=== PATIENT | male | born 1990 | race Caucasian/White ===

== ENCOUNTER 2018-12-30 16:05 | Emergency (ER) | payer SELFPAY ==
[2018-12-30 16:05] VITALS: BP 157/83; PULSE 69; RESP 19; TEMP 37.2; O2SAT 99; BMI 30.4
--- NOTE | 2018-12-30 16:19 | ED.DCSUM_ITS ---
- ER Visit Summary Date of Service: 12/30/18 Chief Complaint: Abdominal pain History of Present Illness: The patient is a 28 M who woke at 3 AM this morning with epigastric abdominal pain, nausea, and vomiting. He reports chills but no measured fever. He denies having diarrhea. He states he last ate around 9 PM last evening. He ate pizza at that time. He felt okay when he went to bed last night. Past history significant for appendectomy. Physical Examination: Blood pressure is 157/83, otherwise vitals normal. Patient lying in bed in no acute distress. He does appear uncomfortable. Heart is regular rate and rhythm. Lung sounds are clear. Abdomen is soft with epigastric tenderness. No guarding or rebound. Hypoactive bowel sounds are present. Test Results: CBC and chemistry studies grossly unremarkable. LFTs and lipase normal. Emergency Department Course and Treatment: Patient was given morphine, Zofran, and IV fluids. This is followed by a dose of Protonix. Patient was given some dangelo riana and states his pain worsened after that. He was given a dose of Toradol and Phenergan. On final repeat exam he is sleeping comfortably. He easily awakens. He states his stomach does feel better but he does not want to eat at this time. He will be given a prescription for Phenergan and Prilosec at home. Treatment Plan: [] Disposition: Discharge Impression: Gastritis This note was generated with [email or web address] dictation software. It may contain incorrect words, spelling, and punctuation that were not noted in review of the chart prior to signing ED Disposition - Plan for ED Patient: Disposition: Home or Assisted Living Instructions: ED PUD Vs Gastritis Prescriptions: proMETHazine tablet [Phenergan] 25 mg PO Q6H PRN PRN #10 tablet PRN Reason: Nausea Omeprazole [Prilosec] 20 mg PO DAILY #30 capsule Referrals: Star Coon DO [STAFF PHYSICIAN] - 1-2 Weeks
[2018-12-30] MEDS: Ondansetron 4 MG/2 ML Vial IV (16:38)
[2018-12-30] MEDS: Morphine 4 MG/ML Syringe IV (16:38)
[2018-12-30] MEDS: 0.9% Normal Saline 1,000 ML 1000 ML IV (16:39)
[2018-12-30 16:53] LABS: Absolute Lymphocyte Count 1.08 X10^3/ul (0.83-4.51); Absolute Neutrophil Count 8.8 X10^3/uL (2.0-7.7); Basophil# 0.02 X10^3/uL; Basophil% 0.2 % (0-1); Eosinophil# 0.05 X10^3/uL; Eosinophils% 0.5 % (0-5); Hematocrit 44.1 % (40-54); Hemoglobin 15.3 g/dl (13.0-16.5); Lymphocyte # 1.08 X10^3/ul (4.0); Lymphocyte % 10.4 % (19-41); Mean Corp Hgb Conc 34.7 g/gl (32-36); Mean Corpuscular Hgb 30.2 pg (27.0-32.0); Mean Corpuscular Volume 87.2 fL (80-94); Mean Platelet Vol. 9.4 fl (6.2-12.0); Monocyte# 0.43 X10^3/uL; Monocyte% 4.1 % (0-10); Neutrophil # 8.81 X10^3/uL (2.7-7.7); Neutrophil % 84.6 % (47-70); Platelet Count 224 K/mm3 (150-450); RBC Distribution Width CV 12.6 % (11.6-14.6); RBC Distribution Width SD 39.3 fl (35.1-43.9); Red Blood Count 5.06 M/mm3 (4.6-6.2); White Blood Count 10.4 K/mm3 (4.4-11.0)
[2018-12-30 17:06] LABS: POSITIVE COUNT NO; POSITIVE DIFFERENTIAL NO; POSITIVE MORPHOLOGY NO
[2018-12-30 17:12] LABS: AST(SGOT) 16 U/L (15-37); Alanine Aminotransfer ALT/SGPT 31 U/L (16-61); Albumin, Serum 4.4 g/dL (3.2-5.0); Alkaline Phosphatase 75 U/L (45-117); Anion Gap 4 (5-15); BUN 12 mg/dL (7-18); BUN/Creat Ratio 13.4 RATIO (10-20); Bilirubin, Direct 0.15 mg/dL (0.00-0.30); Chloride 109 mmol/L (98-107); Creatinine, Serum 0.89 mg/dL (0.70-1.30); EST Glomerular Filtration Rate 107 mL/min (>60); Est Glom Filt Rate - Afr Amer 129 mL/min (>60); Estimated Creatinine Clearance 118.48 ml/min; Globulin 3.4 g/dL (2.2-4.2); Glucose 129 mg/dL (74-106); Lipase 96 U/L (73-393); Potassium 4.3 mmol/L (3.5-5.1); Protein, Total 7.8 g/dL (6.4-8.2); Sodium Level 140 mmol/L (136-145)
[2018-12-30] MEDS: 0.9% Normal Saline 1,000 ML 150 ML IV (17:44)
[2018-12-30] MEDS: proMETHazine 25 MG/ML Syringe 12.5 MG IV (17:52)
[2018-12-30] MEDS: Ketorolac 30 MG/ML Syringe IV (17:52)
[2018-12-30 18:13] VITALS: BP 133/80; PULSE 70; RESP 16; O2SAT 98
[2018-12-30 19:21] VITALS: BP 126/69; PULSE 60; RESP 17; O2SAT 98
== END 2018-12-30 19:22 | disposition home or self-care (01) ==
PROVIDERS: Emergency Provider Emergency Medicine
DX: K29.70 Gastritis, unspecified, without bleeding (principal); Z72.0 Tobacco use
CPT/HCPCS: 80048; 80076; 83690; 85025; 96361; 96365; 96375; 99283; J7030; A4216; J2405

== ENCOUNTER 2021-07-24 20:39 | Emergency (ER) | payer SELFPAY ==
[2021-07-24 20:40] VITALS: BP 147/92; PULSE 96; RESP 15; TEMP 36.3; O2SAT 98; BMI 30.4
[2021-07-24 20:42] VITALS: BP 147/92; PULSE 96; RESP 15; TEMP 36.3; O2SAT 98
[2021-07-24 21:08] LABS: Absolute Lymphocyte Count 1.94 X10^3/uL (0.83-4.51); Absolute Neutrophil Count 3.7 X10^3/uL (2.0-7.7); Basophil# 0.07 X10^3/uL; Basophil% 1.1 % (0-1); Eosinophil# 0.38 X10^3/uL; Eosinophils% 5.7 % (0-5); Hematocrit 36.9 % (40-54); Hemoglobin 12.9 g/dL (13.0-16.5); Lymphocyte # 1.94 X10^3/ul (0.83-4.51); Lymphocyte % 29.3 % (19-41); Mean Corpuscular Hgb 31.2 pg (27.0-32.0); Mean Corpuscular Volume 89.1 fL (80-94); Mean Platelet Vol. 8.7 fl (6.2-12.0); Monocyte# 0.48 X10^3/uL; Monocyte% 7.2 % (0-10); NRBC Flagged by Analyzer 0 % (0-5); Neutrophil # 3.74 X10^3/uL (2.7-7.7); Neutrophil % 56.4 % (47-70); Platelet Count 237 K/mm3 (150-450); RBC Distribution Width CV 12.2 % (11.6-14.6); RBC Distribution Width SD 39.8 fl (35.1-43.9); Red Blood Count 4.14 M/mm3 (4.6-6.2); White Blood Count 6.6 K/mm3 (4.4-11.0)
[2021-07-24 21:24] LABS: ALB/GLOB Ratio 1.1 RATIO (0.9-2.4); AST(SGOT) 13 U/L (15-37); Alanine Aminotransfer ALT/SGPT 22 U/L (16-61); Albumin, Serum 3.9 g/dL (3.2-5.0); Alkaline Phosphatase 61 U/L (45-117); Anion Gap 6 (5-15); BUN 6 mg/dL (7-18); BUN/Creat Ratio 6.6 RATIO (10-20); Calcium,Total 8.9 mg/dL (8.5-10.1); Chloride 109 mmol/L (98-107); Creatinine, Serum 0.91 mg/dL (0.70-1.30); EST Glomerular Filtration Rate 103 mL/min (>60); Est Glom Filt Rate - Afr Amer 125 mL/min (>60); Estimated Creatinine Clearance 116.54 ml/min; Globulin 3.4 g/dL (2.2-4.2); Glucose 154 mg/dL (74-106); Potassium 3.7 mmol/L (3.5-5.1); Protein, Total 7.3 g/dL (6.4-8.2); Sodium Level 141 mmol/L (136-145)
--- NOTE | 2021-07-24 23:18 | EDS_ITS ---
HPI HPI - GI History of Present Illness Chief Complaint: Abd Pain Informant: patient Abdominal Pain/Flank Pain Onset: Weeks Context: Gradual Onset Timing: Continuous Location: Epigastric Current Severity: Mild Maximum Severity: Mild Nausea/Vomiting/Emesis GI Symptom: Positive for Nausea and Vomiting Onset: Days Severity: Mild Diarrhea/Melena/Hematochezia GI Symptom: Negative for Diarrhea, Melena and Hematochezia Associated Symptoms Associated Symptoms: Negative for Dysuria, Frequency, Hematuria and Urgency Narrative Narrative: No prior appendectomy. History of peptic ulcer disease but does not know if he is ever had upper endoscopy. Says he has had flulike symptoms for 2 weeks. Has had epigastric pain for 2 months. Is becoming more constant. He denies any hematemesis or melena. States he has had some mild nausea and vomiting. He has had 12 pound weight loss in the last 1 to 2 weeks. Denies any fever. Prior similar symptoms: Yes Recent Illness/Hospitalization: No PFSH PFSH Medical History no medical history Home Medications ondansetron HCl [Zofran] 4 mg PO Q8H PRN #7 tab 07/24/21 [Rx Last Taken Unknown] pantoprazole [Protonix] 40 mg PO DAILY #30 tab 07/24/21 [Rx Last Taken Unknown] Allergy/AdvReac Type Severity Reaction Status Date / Time No Known Allergies Allergy Verified 07/24/21 20:42 Social History Smoking Status: Light Smoker (<10/day) ROS ROS ED ROS Narrative Nausea and vomiting. Epigastric abdominal pain. Review of Systems ROS Unobtainable: Denies due to encephalopathy Constitutional Constitutional ED: Denies chills or fever(s) ENT ENT ED: Denies ear pain Cardiovascular Cardiovascular: Denies chest pain Respiratory/Chest Respiratory/Chest: Denies dyspnea Gastrointestinal Gastrointestinal: Reports abdominal pain, nausea and vomiting; Denies diarrhea Genitourinary Genitourinary ED: Denies dysuria Musculoskeletal Musculoskeletal: Denies myalgias Integumentary Denies rash Neurologic Neurologic: Denies headache(s) Psychiatric Psychiatric: Denies depression Endocrine Endocrinology: Denies polyuria Hematologic/Lymphatic Hematologic/Lymphatic: Denies easy bruising Allergic/Immunologic Allergic/Immunologic ED: Denies urticaria EXAM Physical Exam Narrative Exam Narrative: 31-year-old male no acute distress vital signs stable afebrile. H EENT exam unremarkable. Neck nontender. Lungs clear to auscultation bilaterally heart regular rhythm. Abdomen soft nondistended normal bowel sounds no peritoneal signs. Mild epigastric tenderness. Right upper right lower quadrant unremarkable. Extremities moves all 4. Calves nontender no edema back nontender. Neurologic exam normal. Const Vital Signs: 07/24/21 20:40 07/24/21 20:42 Temperature 97.3 F L 97.3 F L Temperature Source Temporal Temporal Pulse Rate 96 96 Respiratory Rate 15 15 Blood Pressure 147/92 H 147/92 H Blood Pressure Mean 110 110 Pulse Ox 98 98 Oxygen Delivery Method Room Air Room Air Positive well nourished and well developed; Negative for obese, cachectic, contractures or unkempt General Appearance ED: well developed and NAD; Negative for unkempt, cachectic, contractures or pallor Nutritional Appearance: Negative for cachectic or obese HEENT normocephalic and atraumatic; Negative for trauma or tenderness Eyes PERRL and EOMs intact bilaterally General Eye ED: Yes pale conjunctiva Neck no lymphadenopathy, supple and no JVD General: Negative for tenderness Resp normal respiratory effort and clear to auscultation bilaterally Auscultation: Negative for rales, rhonchi or wheezes Cardio regular rate, regular rhythm, S1 normal heart sound, S2 normal heart sound and no murmurs GI non-distended and no masses; Negative for non-tender Inspection: Negative for abdominal distention Auscultation: normoactive bowel sounds Palpation: soft; Negative for tender, guarding, rigid or rebound tenderness present Back/Spine no CVA tenderness General Back: Negative for CVA tenderness Extremity full ROM General Extremety ED: Negative for edema or tenderness General Extremity: Negative for edema Neuro moves all extremities Sensorium / Orientation: alert, oriented to person, oriented to place and oriented to time; Negative for orientation impaired, confused, lethargic or stuporous Motor Exam: strength 5/5 throughout Psych mental status grossly normal and thought process normal Appearance: Negative for unkempt Mood & Affect: Negative for depressed Skin no wounds General Skin Exam: Negative for jaundice or pallor Lesions: no lesions Rashes: no rashes MDM MDM MDM Narrative Medical decision making narrative: 31-year-old male with epigastric abdominal pain for months. Gastritis versus ulcer. Treated with GI cocktail and Pepcid. Repeat exam patient feels a little bit better after GI cocktail and Pepcid. We discussed his test results and the drop of his hemoglobin from 15-12.9. He knows he needs to follow-up for further evaluation for possible gastritis or ulcer and he knows when to return if feeling worse or melena or hematemesis. He will be started on Protonix daily. Lab Data Attestation: I reviewed the patient's lab results. Lab results narrative: CBC shows a white count of 6. Hemoglobin 12.9. Electrolytes gap of 6 normal BUN and creatinine. Glucose 154. Covid test negative. Labs: Laboratory Results - last 24 hr 07/24/21 07/24/21 07/24/21 20:55 20:55 20:55 WBC 6.6 RBC 4.14 L Hgb 12.9 L Hct 36.9 L MCV 89.1 MCH 31.2 MCHC 35.0 RDW Std Deviation 39.8 RDW Coeff of Raul 12.2 Plt Count 237 MPV 8.7 Immature Gran % (Auto) 0.300 Neut % (Auto) 56.4 Lymph % (Auto) 29.3 [place] % (Auto) 7.2 Eos % (Auto) 5.7 H Baso % (Auto) 1.1 H Absolute Neuts (auto) 3.7 Absolute Lymphs (auto) 1.94 Nucleated RBC % 0 Sodium 141 Potassium 3.7 Chloride 109 H Carbon Dioxide 26.0 Anion Gap 6 BUN 6 L Creatinine 0.91 Estim Creat Clear Calc 116.54 Est GFR (MDRD) Af Amer 125 Est GFR (MDRD) Non-Af 103 BUN/Creatinine Ratio 6.6 L Glucose 154 H Calcium 8.9 Total Bilirubin 0.40 AST 13 L ALT 22 Alkaline Phosphatase 61 Total Protein 7.3 Albumin 3.9 Globulin 3.4 Albumin/Globulin Ratio 1.1 Lipase 176 Discharge Plan Triage Chief Complaint: Abd Pain ED Provider: Gordon Fields Dx/Rx/DC Orders Clinical Impression: Gastritis Instructions: ED Gastritis (Adult) Prescriptions: New pantoprazole [Protonix] 40 mg tablet,delayed release (DR/EC) 40 mg PO DAILY Qty: 30 RF: 0 ondansetron HCl [Zofran] 4 mg tablet 4 mg PO Q8H PRN (Reason: nausea and vomiting) Qty: 7 RF: 0 Primary Care Provider: Care Physician,No Primary Referrals: Kranthi Eddy MD [STAFF PHYSICIAN] - As soon as possible Friend,DO Sebastien [STAFF PHYSICIAN] - As soon as possible Care Physician,No Primary [Primary Care Provider] - Activity Restrictions/Additional Instructions: This is most likely gastritis or potentially an ulcer. You need to follow-up with either general surgeon or acoustical tile carpenters supervisor their names are listed above to have them evaluated and possibly do an upper scope. Protonix daily. Zofran as needed for nausea. Return if black or bloody stool or throw up blood. This should progressively improve. Disposition Disposition: Home, Self Care
[2021-07-24] MEDS: Mag Hydrox/Al Hydrox/Simeth 30 ML UDC PO (23:31)
[2021-07-24] MEDS: Pantoprazole Sodium 40 MG Tablet PO (23:31)
[2021-07-24 23:54] LABS: Lipase 176 U/L (73-393)
== END 2021-07-25 00:18 | disposition home or self-care (01) ==
LOC: ED 23:49
PROVIDERS: Emergency Provider Emergency Medicine
DX: K29.70 Gastritis, unspecified, without bleeding (principal); F17.200 Nicotine dependence, unspecified, uncomplicated; Z87.11 Personal history of peptic ulcer disease
CPT/HCPCS: 80053; 83690; 85025; 87426; 99284